=== PATIENT | male | born 1945 | race Caucasian/White ===

== ENCOUNTER 2017-02-13 19:29 | Emergency (ER) | payer MEDICARE, OTHER ==
[~2017-02-13 19:29] MED LIST: GLUCAGON EME1 MG/KIT IM; HUMALOG100 U/ML; HUMALOG100 U/ML SQ; HYDROCHLOROTHIA25 MG; LANTUS100 U/ML; LISINOPRIL10 MG; LISINOPRIL10 MG PO; MULTIVITAMIN1 TAB; PLAQUENIL200 MG; [UNRECOGNIZED DRUG - OTHER]
[2017-02-13] MEDS ORDERED: ASPIRIN EC81 MG PO (19:49)
[2017-02-13] MEDS ORDERED: PRINIVIL20 M1 PO (19:49)
[2017-02-13] MEDS ORDERED: FOLIC ACID1 M1 PO (19:50)
[2017-02-13] MEDS ORDERED: LIPITOR40 M1 PO (19:50)
[2017-02-13] MEDS ORDERED: ORENCIA 25250 MG/10 (19:51)
[2017-02-13 20:10] LABS: BASO % 0.2 % (0-2); EOS % 7.9 % (0-7); EOSINOPHIL ABSOLUTE COUNT 0.8 tho/cmm (0.0-0.7); HCT-HEMATOCRIT 42.8 % (36.0-53.5); HGB-HEMOGLOBIN 14.5 gm/dl (13.5-17.0); IMMATURE GRANULOCYTES ABSOLUTE 0.03 tho/cmm (0-0.03); IMMATURE GRANULOCYTES PERCENT 0.3 % (0-0.3); LYMPH % 13.1 % (20-45); LYMPH ABSOLUTE COUNT 1.3 tho/cmm (0.8-4.5); MCH (MEAN CORPUSCULAR HGB) 29.4 pg (28.0-32.0); MCHC MEAN CORPUSCULAR HGB CONC 33.9 % (32.0-36.0); MCV (MEAN CELL VOLUME) 86.8 fl (82.0-96.0); MEAN PLATELET VOLUME 9.6 cmc (9.4-12.4); MONO % 7.8 % (0-12); MONOCYTE ABSOLUTE COUNT 0.8 tho/cmm (0.0-1.2); NEUTROPHILS % 70.7 % (40-80); PLATELET COUNT 324 tho/cmm (150-450); RED BLOOD COUNT 4.93 mil/cmm (4.40-5.70); RED CELL DISTRIBUTION WIDTH 14.5 % (12.4-16.4); WHITE BLOOD COUNT 9.8 tho/cmm (4.0-10.0)
[2017-02-13 20:48] LABS: ANION GAP 14 mmol/L (0-20); BLOOD UREA NITROGEN 21 mg/dl (6-24); CARBON DIOXIDE-VENOUS 23 mmol/L (22-32); CHLORIDE 105 mmol/l (96-110); CREATININE 1.09 mg/dl (0.60-1.30); GLUCOSE 151 mg/dL (70-110); POTASSIUM 5.1 mmol/L (3.7-5.1); SODIUM 137 mmol/L (135-145); eGFR VALUE FOR BLACK 78 mL/Min
== END 2017-02-13 21:59 ==
LOC: EDMED 19:29
PROVIDERS: Emergency Medicine
DX: J43.9 Emphysema, unspecified (principal); E11.9 Type 2 diabetes mellitus without complications; I10 Essential (primary) hypertension; M06.9 Rheumatoid arthritis, unspecified; Z87.891 Personal history of nicotine dependence; Z79.82 Long term (current) use of aspirin; Z79.899 Other long term (current) drug therapy
CPT/HCPCS: Q9967